=== PATIENT | female | born 1965 | race Caucasian/White ===

== ENCOUNTER 2016-10-23 05:46 | Inpatient (IN) | payer OTHER ==
[~2016-10-23] VITALS: Ht 157.5 cm; Wt 93.1 kg
[~2016-10-23 05:46] MED LIST: AMOXICILLIN500 MG PO; ASPIRIN81 M2 PO; BACTRIM,SEPT1 TABLET PO; CELEXA20 MG PO; CIPRO500 MG PO; Desyrel PO; ESGIC 50-325-41 EAC1 PO; ESSENTIAL WOMA1 EAC1 PO; GEODON80 MG PO; Glucophage PO; KEFLEX500 MG PO; LISINOPRIL-HCT1 EAC3 PO; LISINOPRIL20 MG PO; METFORMIN HCL500 MG PO; METOPROLOL SUCC25 MG PO; MOTRIN800 MG PO; Motrin PO; NORCO 5/3251 TABLET PO; NORETHINDRONE5 MG PO; OMEPRAZOLE20 MG PO; OXYCODONE-ACET1 EACH PO; PYRIDIUM200 MG PO; Percocet 5/325,Endoc PO; SIMVASTATIN20 M1 PO; SIMVASTATIN40 MG PO; TRAZODONE HCL50 MG PO; Toprol XL PO; VICODIN 5-3001 EACH PO; ZESTRIL,PRINIVI20 MG PO; Zantac PO; Zestoretic,Prinzide PO; Zestril,Prinivil PO; celeXA PO
[2016-10-23 06:10] VITALS: BP 122/73
[2016-10-23 06:16] LABS: POINT-OF-CARE METER ID UU14174212
[2016-10-23] MEDS ORDERED: ENDOCET 5-3251 EACH PO (10:12)
[2016-10-23] MEDS ORDERED: DOCUSATE SODIU100 MG PO (10:12)
[2016-10-23] MEDS ORDERED: HYDROCHLOROTH12.5 M3 PO (10:13)
[2016-10-23 10:20] LABS: POINT-OF-CARE METER ID UU13113675
[2016-10-23 11:55] LABS: MCHC 33.2 G/DL (30.0-36.0); MCV 87.4 FL (83-99); MEAN PLAT.VOLUME 11.2 uM^3 (9.5-12.4); PLATELET COUNT 227 K/uL (156-360); RBC DIS.WIDTH-CV 13.5 % (11.8-14.6); RBC DIS.WIDTH-SD 43.2 % (39-53); RED BLOOD COUNT 4.35 M/uL (3.80-5.20)
[2016-10-23 11:57] LABS: WHITE BLOOD COUNT 23.8 K/uL (4.1-10.2)
[2016-10-23 12:23] LABS: ANION GAP 11 MEQ/L (2-14); CHLORIDE 101 MEQ/L (99-109); GFR ESTIMATE (CALCULATED) > 59 mL/min/; GLUCOSE 143 mg/dL (70-99); POTASSIUM 3.7 MEQ/L (3.7-5.4); SAMPLE HEMOLYSIS CHECK 1; SAMPLE ICTERIC CHECK 0; SAMPLE LIPEMIA CHECK 0; SODIUM 139 MEQ/L (136-147); UREA NITROGEN (BUN) 10 mg/dL (9-23)
[2016-10-23 15:44] VITALS: BP 118/65
[2016-10-23 22:34] VITALS: BP 115/67
[2016-10-23 22:46] LABS: POINT-OF-CARE METER ID UU13113725
[2016-10-24 03:56] VITALS: BP 113/57
[2016-10-24 06:07] LABS: POINT-OF-CARE METER ID UU13113725
[2016-10-24 06:46] VITALS: BP 100/62
[2016-10-24 07:50] LABS: HEMATOCRIT 35.6 % (36.0-46.0); MCHC 32.9 G/DL (30.0-36.0); MCV 88.1 FL (83-99); MEAN PLAT.VOLUME 11.7 uM^3 (9.5-12.4); PLATELET COUNT 212 K/uL (156-360); RBC DIS.WIDTH-CV 13.7 % (11.8-14.6); RBC DIS.WIDTH-SD 43.8 % (39-53); RED BLOOD COUNT 4.04 M/uL (3.80-5.20)
[2016-10-24 07:52] LABS: WHITE BLOOD COUNT 14.2 K/uL (4.1-10.2)
[2016-10-24 08:06] LABS: ANION GAP 7 MEQ/L (2-14); CHLORIDE 102 MEQ/L (99-109); GFR ESTIMATE (CALCULATED) > 59 mL/min/; GLUCOSE 124 mg/dL (70-99); POTASSIUM 4.3 MEQ/L (3.7-5.4); SAMPLE HEMOLYSIS CHECK 0; SAMPLE ICTERIC CHECK 0; SAMPLE LIPEMIA CHECK 0; SODIUM 139 MEQ/L (136-147); UREA NITROGEN (BUN) 9 mg/dL (9-23)
[2016-10-24 08:18] VITALS: BP 103/54
[2016-10-24 16:30] LABS: POINT-OF-CARE METER ID UU13113725
[2016-10-24 16:51] VITALS: BP 110/58
[2016-10-24 20:59] LABS: POINT-OF-CARE METER ID UU13113725
[2016-10-24 22:37] VITALS: BP 126/59
[2016-10-25 06:23] LABS: HEMATOCRIT 31.8 % (36.0-46.0); MCH 28.7 PG (29.0-34.0); MCHC 32.1 G/DL (30.0-36.0); MCV 89.6 FL (83-99); MEAN PLAT.VOLUME 11.6 uM^3 (9.5-12.4); PLATELET COUNT 184 K/uL (156-360); RBC DIS.WIDTH-CV 13.6 % (11.8-14.6); RBC DIS.WIDTH-SD 44.9 % (39-53); RED BLOOD COUNT 3.55 M/uL (3.80-5.20); WHITE BLOOD COUNT 13.6 K/uL (4.1-10.2)
[2016-10-25 06:49] LABS: ANION GAP 5 MEQ/L (2-14); CHLORIDE 101 MEQ/L (99-109); GFR ESTIMATE (CALCULATED) > 59 mL/min/; GLUCOSE 114 mg/dL (70-99); POTASSIUM 4.3 MEQ/L (3.7-5.4); SAMPLE HEMOLYSIS CHECK 0; SAMPLE ICTERIC CHECK 0; SAMPLE LIPEMIA CHECK 0; SODIUM 135 MEQ/L (136-147); UREA NITROGEN (BUN) 6 mg/dL (9-23)
[2016-10-25 08:35] VITALS: BP 110/59
[2016-10-25 11:40] LABS: POINT-OF-CARE METER ID UU13113725
[2016-10-25 17:08] VITALS: BP 133/70
[2016-10-25 21:22] VITALS: BP 107/56
[2016-10-26 00:14] VITALS: BP 110/62
[2016-10-26 04:29] VITALS: BP 112/57
[2016-10-26 07:11] LABS: MCH 29.1 PG (29.0-34.0); MCHC 32.8 G/DL (30.0-36.0); MCV 88.6 FL (83-99); MEAN PLAT.VOLUME 11.3 uM^3 (9.5-12.4); PLATELET COUNT 187 K/uL (156-360); RBC DIS.WIDTH-CV 13.4 % (11.8-14.6); RED BLOOD COUNT 3.61 M/uL (3.80-5.20); WHITE BLOOD COUNT 11.9 K/uL (4.1-10.2)
[2016-10-26 07:36] LABS: ANION GAP 10 MEQ/L (2-14); CHLORIDE 102 MEQ/L (99-109); GFR ESTIMATE (CALCULATED) > 59 mL/min/; GLUCOSE 113 mg/dL (70-99); SAMPLE HEMOLYSIS CHECK 0; SAMPLE ICTERIC CHECK 0; SAMPLE LIPEMIA CHECK 0; SODIUM 135 MEQ/L (136-147); UREA NITROGEN (BUN) 7 mg/dL (9-23)
[2016-10-26 07:44] VITALS: BP 108/77
[2016-10-26 16:49] LABS: POINT-OF-CARE METER ID UU13113725
[2016-10-26 18:33] VITALS: BP 194/81
[2016-10-26 19:57] VITALS: BP 129/61
[2016-10-26 23:02] VITALS: BP 121/72
[2016-10-27 03:16] VITALS: BP 113/59
[2016-10-27 08:19] LABS: HEMATOCRIT 33.4 % (36.0-46.0); MCH 29.5 PG (29.0-34.0); MCHC 33.8 G/DL (30.0-36.0); MCV 87.2 FL (83-99); RBC DIS.WIDTH-CV 13.1 % (11.8-14.6); RBC DIS.WIDTH-SD 41.9 % (39-53); RED BLOOD COUNT 3.83 M/uL (3.80-5.20); WHITE BLOOD COUNT 10.1 K/uL (4.1-10.2)
[2016-10-27 08:42] LABS: ANION GAP 11 MEQ/L (2-14); CHLORIDE 102 MEQ/L (99-109); GFR ESTIMATE (CALCULATED) > 59 mL/min/; GLUCOSE 111 mg/dL (70-99); POTASSIUM 4.2 MEQ/L (3.7-5.4); SAMPLE HEMOLYSIS CHECK 0; SAMPLE ICTERIC CHECK 0; SAMPLE LIPEMIA CHECK 0; SODIUM 139 MEQ/L (136-147); UREA NITROGEN (BUN) 9 mg/dL (9-23)
[2016-10-27 08:53] LABS: MEAN PLAT.VOLUME 11.3 uM^3 (9.5-12.4)
[2016-10-27 08:55] LABS: PLATELET COUNT 263 K/uL (156-360)
[2016-10-27 09:04] VITALS: BP 140/82
== END 2016-10-27 13:43 | disposition home or self-care (01) | DRG 660 ==
LOC: 5EAST 05:46 → 2SOUTH 05:46 → 5EAST 15:21 → 2SOUTH 15:41 → 5EAST 10-27 13:43
PROVIDERS: Urology
PROC: 0TT10ZZ Resection of Left Kidney, Open Approach (ICD-10-PCS; principal; 2016-10-23)
DX: N26.1 Atrophy of kidney (terminal) (principal); Q60.3 Renal hypoplasia, unilateral; N11.1 Chronic obstructive pyelonephritis; N39.0 Urinary tract infection, site not specified; N20.0 Calculus of kidney; I10 Essential (primary) hypertension; K21.9 Gastro-esophageal reflux disease without esophagitis; E78.5 Hyperlipidemia, unspecified; E11.9 Type 2 diabetes mellitus without complications; F41.9 Anxiety disorder, unspecified
CPT/HCPCS: 80048; 82948; 85027; 88307; 94799; J0330; J0690; J1100; J1170; J1644; J1815; J1885; J2250; J2405; J2710; J2765; J3010; J7120